=== PATIENT | female | born 1945 | race Caucasian/White ===

== ENCOUNTER 2020-07-27 12:52 | Observation (INO) ==
[2020-07-27] MEDS ORDERED: Naloxone 0.4 MG/ML INJ IVP PRN (16:18)
[2020-07-27] MEDS ORDERED: Ondansetron 4 MG/2 ML VIAL IVP PRN (16:18)
[2020-07-27] MEDS ORDERED: Acetaminophen 325 MG TABLET PO PRN (16:18)
[2020-07-27] MEDS ORDERED: Perflutren Lipid Microsphere 1.3 ML in 0.9 % Sodium Chloride 8.7 ML IVP PRN (16:24)
[2020-07-27] MEDS: Gabapentin 300 MG CAPSULE PO SCH (20:14)
[2020-07-27] MEDS: *HR* Labetalol 20 MG/4 ML SYRINGE IVP PRN (20:15)
[2020-07-27] MEDS: Apixaban 5 MG TABLET PO SCH (20:15)
[2020-07-28 04:18] LABS: INR 1.8
[2020-07-28 04:19] LABS: Estimated Average Glucose 140 mg/dl; Hemoglobin A1C 6.5 %
[2020-07-28 04:22] LABS: Hematocrit 37.6 % (35.3-44.9); Hemoglobin 11.6 g/dL (11.5-15.4); Mean Corpuscular HGB Conc 30.9 g/dL (31.6-35.5); Mean Corpuscular Hemoglobin 26.8 pg (28.0-33.3); Mean Corpuscular Volume 86.8 fL (83.0-100.0); Mean Platelet Volume 11.5 fL (9.4-12.4); Platelet Count 212 K/mcL (140-400); Red Blood Count 4.33 M/mcL (3.82-4.97); Red Cell Distribution Width 15.9 % (11.5-14.5); White Blood Count 7.2 K/mcL (4.3-11.1)
[2020-07-28 04:35] LABS: Alanine Aminotransferase 14 Units/L (7-52); Albumin 3.8 g/dL (3.5-5.7); Albumin/Globulin Ratio 1.2 (1.1-2.2); Alkaline Phosphatase 52 Units/L (34-104); Aspartate Amino Transferase 26 Units/L (13-39); BUN/Creatinine Ratio 23 (6-26); Bilirubin,Total 0.6 mg/dL (0.3-1.0); Blood Urea Nitrogen 10 mg/dL (8-23); Carbon Dioxide 27 mEq/L (23-29); Chloride 100 mEq/L (98-107); Chol/HDL Ratio 2.9 (0-4.9); Cholesterol 100 mg/dL (< 200); Globulin 3.1 g/dL (2.4-3.5); Glucose 85 mg/dL (70-105); HDL Cholesterol 34 mg/dL (40-59); LDL Cholesterol,Calculated 25 mg/dL (< 100); Osmolality,Calculated 286 (280-300); Sodium 139 mEq/L (136-145); Total Protein 6.9 g/dL (6.4-8.9); Triglycerides 207 mg/dL (< 150); eGFR For African Americans > 60 (> 60); eGFR For Non-African Americans > 60 (> 60)
[2020-07-28] MEDS ORDERED: D5% in Water 1,000 ML IVC PRN (08:30)
[2020-07-28] MEDS ORDERED: *HR* Dextrose 50 % in Water (Vial) 50 ML VIAL IVP PRN (08:30)
[2020-07-28] MEDS ORDERED: Dextrose Gel 15 GM/37.5 ML TUBE PO PRN ×2 (08:30)
[2020-07-28] MEDS ORDERED: allopurinoL 100 MG TABLET PO SCH (09:00)
[2020-07-28] MEDS: Gabapentin 300 MG CAPSULE PO SCH (09:00)
[2020-07-28] MEDS ORDERED: lisinopriL 20 MG TABLET PO SCH (09:00)
[2020-07-28] MEDS ORDERED: *HR* Metformin 500 MG TABLET PO SCH (09:00)
[2020-07-28] MEDS: Apixaban 5 MG TABLET PO SCH (09:00)
[2020-07-28] MEDS ORDERED: carvediloL 25 MG TABLET PO SCH (09:00)
[2020-07-28] MEDS ORDERED: DilTIAZem CD (24hr) 120 MG CAP.ER.24H PO SCH (09:00)
[2020-07-28] MEDS ORDERED: Aspirin Enteric Coated 81 MG Tablet PO SCH (09:00)
[2020-07-28 09:19] LABS: Magnesium 1.1 mg/dL (1.6-2.6)
[2020-07-28 09:32] LABS: Thyroid Stimulating Hormone 2.656 mcIU/mL (0.340-5.600)
[2020-07-28] MEDS ORDERED: lisinopriL 20 MG TABLET PO ONE (11:03)
[2020-07-28] MEDS ORDERED: Insulin LISPRO 300 UNITS/3 ML VIAL SUBQ SCH ×2 (11:30→21:00)
[2020-07-28] MEDS: *HR* Labetalol 20 MG/4 ML SYRINGE IVP PRN (12:23)
[2020-07-28 13:25] VITALS: BP 145/73
== END 2020-07-28 14:59 | disposition home or self-care (01) ==
LOC: 3BNU → SUATTDRO 15:45
PROVIDERS: ADMIT Internal Medicine; ATTEND Internal Medicine

== ENCOUNTER 2020-08-25 11:13 | Observation (INO) ==
[~2020-08-25 11:13] MED LIST: Famotidine 20 MG/2 ML VIAL IVP ONE
[2020-08-25] MEDS ORDERED: CeFAZolin Syr 2,000MG/20 ML 2,000 MG/20 ML SYRINGE IVPB ONE (11:30)
[2020-08-25] MEDS ORDERED: Ringers Solution, Lactated 1,000 ML IVC SCH (11:30)
[2020-08-25] MEDS ORDERED: Acetaminophen IV 1,000 MG/100 ML BAG IVPB ONE (12:13)
[2020-08-25] MEDS ORDERED: Ondansetron 4 MG/2 ML VIAL IVP PRN ×2 (12:14→19:23)
[2020-08-25] MEDS ORDERED: Naloxone 0.4 MG/ML INJ IVP PRN ×2 (12:14→19:23)
[2020-08-25] MEDS ORDERED: Nitroglycerin 0.4 MG TAB.SUBL SL PRN (12:14)
[2020-08-25] MEDS ORDERED: ceFAZolin 1,000 MG, Sodium Chloride IRRigation 1,000 ML IR ONE (12:35)
[2020-08-25] MEDS ORDERED: *HR* Propofol 200 MG/20 ML VIAL IVP ONE (13:15)
[2020-08-25] MEDS ORDERED: *HR* Midazolam HCl 2 MG/2 ML VIAL ONE (13:16)
[2020-08-25] MEDS ORDERED: *HR* FentaNYL (PF) 100 MCG/2 ML VIAL ONE (13:16)
[2020-08-25] MEDS ORDERED: Ondansetron 4 MG/2 ML VIAL ONE (13:17)
[2020-08-25] MEDS ORDERED: Lidocaine -MPF 2% 2 ML VIAL ONE (13:17)
[2020-08-25] MEDS ORDERED: Lidocaine HCL 4 ML Topical Solution (Laryng-O-Jet Kit Sterile Pak) TP ONE (13:17)
[2020-08-25] MEDS ORDERED: *HR* Rocuronium Bromide 50 MG/5 ML VIAL ONE (13:17)
[2020-08-25] MEDS ORDERED: *HR* Remifentanil 2 MG VIAL IVP ONE (13:24)
[2020-08-25] MEDS ORDERED: Heparin 1,000 UNITS/500 mL 0 ML ONE (13:26)
[2020-08-25] MEDS ORDERED: Heparin 1,000 UNITS/500 mL 500 ML ONE (13:33)
[2020-08-25] MEDS ORDERED: Protamine Sulfate 50 MG/5 ML VIAL IVP ONE (13:33)
[2020-08-25] MEDS ORDERED: *HR* Vasopressin 20 UNIT/ML VIAL ONE (13:36)
[2020-08-25] MEDS ORDERED: *HR* Nitroprusside 50 MG VIAL IVC ONE (13:36)
[2020-08-25] MEDS ORDERED: EPHEDrine 50 MG/ML VIAL ONE (14:52)
[2020-08-25] MEDS ORDERED: *HR* Heparin 5,000 UNIT/ML VIAL ONE (15:51)
[2020-08-25] MEDS ORDERED: Sugammadex Sodium 200 MG/2 ML VIAL IV ONE (17:29)
[2020-08-25] MEDS ORDERED: *HR* Labetalol 20 MG/4 ML SYRINGE IVP ONE (18:11)
[2020-08-25] MEDS: *HR* Labetalol 20 MG/4 ML SYRINGE IVP PRN ×4 (18:12→22:26)
[2020-08-25] MEDS: *HR* FentaNYL (PF) 100 MCG/2 ML VIAL IVP PRN ×2 (18:17→18:25)
[2020-08-25] MEDS ORDERED: *HR* HYDROcodone/Acet 5/325 mg TABLET PO PRN (19:23)
[2020-08-25] MEDS ORDERED: Acetaminophen 325 MG TABLET PO PRN (19:23)
[2020-08-25] MEDS: allopurinoL 100 MG TABLET PO SCH (19:59)
[2020-08-25] MEDS: carvediloL 25 MG TABLET PO SCH (19:59)
[2020-08-25] MEDS: Gabapentin 300 MG CAPSULE PO SCH (20:00)
[2020-08-25] MEDS: *HR* Metformin 500 MG TABLET PO SCH (20:00)
[2020-08-25 20:14] LABS: Basophils % 0.4 %; Eosinophils % 0.1 %; Hematocrit 33.4 % (35.3-44.9); Hemoglobin 10.4 g/dL (11.5-15.4); Immature Granulocytes % 0.4 % (0-4); Lymphocytes # 0.9 K/mcL (0.6-4.6); Lymphocytes % 10.9 %; Mean Corpuscular HGB Conc 31.1 g/dL (31.6-35.5); Mean Corpuscular Hemoglobin 27.6 pg (28.0-33.3); Mean Corpuscular Volume 88.6 fL (83.0-100.0); Mean Platelet Volume 12.3 fL (9.4-12.4); Monocytes # 0.2 K/mcL (0.0-1.3); Monocytes % 1.8 %; Neutrophils # 7.1 K/mcL (1.6-8.9); Platelet Count 184 K/mcL (140-400); Red Blood Count 3.77 M/mcL (3.82-4.97); Red Cell Distribution Width 16.6 % (11.5-14.5); Segmented Neutrophils % 86.4 %; White Blood Count 8.2 K/mcL (4.3-11.1)
[2020-08-25] MEDS: CeFAZolin 2 GM/120 ML BAG IVPB SCH (22:24)
[2020-08-26] MEDS: CeFAZolin 2 GM/120 ML BAG IVPB SCH (05:48)
[2020-08-26] MEDS: *HR* Metformin 500 MG TABLET PO SCH (08:14)
[2020-08-26] MEDS: carvediloL 25 MG TABLET PO SCH (08:15)
[2020-08-26] MEDS: Gabapentin 300 MG CAPSULE PO SCH (08:15)
[2020-08-26] MEDS: allopurinoL 100 MG TABLET PO SCH (08:15)
[2020-08-26] MEDS ORDERED: lisinopriL 20 MG TABLET PO SCH (09:00)
[2020-08-26] MEDS ORDERED: cloNIDine HCL 0.1 MG TABLET PO SCH (09:00)
[2020-08-26] MEDS ORDERED: Cyanocobalamin (B-12) 1,000 MCG TABLET PO SCH (09:00)
[2020-08-26] MEDS ORDERED: Multivit/Ca/Min/Fe/FA 1 TAB TABLET PO SCH (09:00)
[2020-08-26] MEDS ORDERED: Aspirin Enteric Coated 81 MG Tablet PO SCH (09:00)
[2020-08-26 11:31] VITALS: BP 166/83
== END 2020-08-26 12:40 | disposition home or self-care (01) | DRG 39 ==
LOC: SAMDAY 11:13 → INTOOBSV 18:55 → 2NNU 18:55
PROVIDERS: ADMIT Surgery Vascular Surgery; ATTEND Surgery Vascular Surgery